=== PATIENT | female | born 1955 | race Caucasian/White ===

== ENCOUNTER 2024-08-21 00:30 | Emergency (ER) | payer OTHER, SELFPAY ==
[2024-08-21] VITALS (8 sets, daily range): BP systolic 120–176; BP diastolic 55–98; BMI 35.7
[2024-08-21 01:10] LABS: Urine Albumin 1+ (Neg - Trace); Urine Bilirubin Negative (Negative); Urine Character Cloudy (Clear); Urine Color Amber; Urine Glucose 1+ (Negative); Urine Ketone Trace (Negative); Urine Leukocyte Trace (Negative); Urine Nitrite Negative (Negative); Urine Occult Blood 4+ (Negative); Urine Specific Gravity 1.025 (<1.030); Urine Urobilinogen Negative (Neg - 1+)
[2024-08-21 01:11] LABS: % Basophils 0.4 % (0-2); % Eosinophils 0.1 % (0-6); % Immature Granulocytes 0.4 % (0-0.5); % Lymphocytes 6.4 % (20.5-51.1); % Monocytes 4.2 % (1.7-9.3); % Neutrophils 88.5 % (42.2-75.2); Absolute Basophils 0.1 10^3/uL (0-0.2); Absolute Immature Granulocytes 0.1 10^3/uL (0-0.05); Absolute Lymphocytes 0.7 10^3/uL (1.2-3.4); Absolute Monocytes 0.5 10^3/uL (0.1-0.6); Absolute Neutrophils 9.9 10^3/uL (1.4-6.5); Hematocrit 43.2 % (37.0-47.0); Hemoglobin 14.9 g/dL (12.0-16.0); Mean Corp Hgb Conc. 34.5 g/dL (33.0-37.0); Mean Corpuscular Hgb 32.8 pg (27.0-31.0); Mean Corpuscular Volume 95.2 fL (81.0-99.0); Mean Platelet Volume 10.2 fL (7.4-10.4); Nucleated Red Blood Cells % 0 %; Platelet Count 208 10^3/uL (130-400); Red Blood Cell Count 4.54 10^6/uL (4.20-5.40); Red Cell Dist. Width 12.4 % (11.5-14.5); White Blood Cell Count 11.2 10^3/uL (4.8-10.8)
[2024-08-21 01:17] LABS: Urine Amorphous Seen; Urine Bacteria Many (Negative); Urine Red Blood Cell >100 /HPF (0-2); Urine Squamous Cell >30 /LPF (Few)
[2024-08-21 01:18] LABS: ALT (SGPT) 23 U/L (0-35); AST (SGOT) 28 U/L (14-36); Albumin 4.6 g/dl (3.5-5.0); Alkaline Phosphatase 131 U/L (38-126); Blood Urea Nitrogen 17 mg/dl (7-17); Calcium 10.5 mg/dl (8.4-10.2); Carbon Dioxide 19 mmol/L (22-30); Chloride 106 mmol/L (98-107); Glucose 180 mg/dl (70-99); Lipase 70 U/L (23-300); Potassium 4.2 mmol/L (3.5-5.1); Sodium 134 mmol/L (135-145); Total Bilirubin 0.5 mg/dl (0.2-1.3); Total Protein 7.4 g/dl (6.3-8.2); eGFR > 60.00
[2024-08-21 01:18] LABS: Urine Calcium Oxalate Crystals Seen
--- NOTE | 2024-08-21 07:42 | ED.GENMED ---
History of Present Illness
General
Chief Complaint: Abdominal Pain
Source: patient
Exam Limitations: none
Time Seen by Provider: 08/21/24 07:06
Nursing documentation reviewed up to this point in time: agreed with
History of Present Illness
History of Present Illness:
69 y/o F
no chronic meds
here with abd pain that sstarted after eating dinner around 7 pm and seemed to increase and move around, was initially upper abd and then settled to lower abd with radiation to her back
she was very uncomfortable
tried to stay home but couldn't find comfortable position
she had 3 total episodes of vomiting and some nausea and gas
but no diarrhea, fever, cp, sob
she noticed gross hematuria with pink urine, no clots
pt actually has upcoming appt with urology after having 2 separate episodes of painless hematuria (one in june one in july) and had eval with UA which was neg beucase it was transient
never had kidney stone before
Past History
Past History
ED Past Medical History: None
ED Past Surgical History: Gynecological
Social History
Tobacco: Non-smoker
Alcohol: None
Drug: None
Review of Systems
Review of Systems
Allergies reviewed?: Yes
All Other Systems: Not applicable
Phy Exam
Physical Exam
Physical Exam:
GENERAL: Alert , in no apparent distress
EYE: pupils equal and reactive
NECK: Supple
ENT: o/p clr, mmm.
CARDIAC: Regular rate and rhythm .
LUNGS: Clear breath sounds bilaterally, no acute respiratory distress, no wheezes/rales/rhonchi
ABDOMEN: Soft, without focal tenderness, no r/g, no cvat, normal bowel sounds
NEUROLOGICAL: Alert and oriented, no focal neuro deficits
SKIN: Warm and dry, skin intact.
PSYCH: Normal and appropriate interaction.
Course
Orders/Labs/Results
Orders:
Orders
08/21/24 00:31
EKG [Electrocardiogram (*1)] Urgent
Reason for Study: Abdominal Pain
08/21/24 00:32
EKG- Treatment ONCE
08/21/24 00:51
Urinalysis Reflex To Culture Urgent
Date Specimen was Collected: 08/21/24
Time Specimen was Collected: 00:31
Urine Microscopic Reflex Cult Urgent
Urine Culture Urgent
PARVIN Source: U
Specimen Description:
Date Specimen was Collected: 08/21/24
Time Specimen was Collected: 00:31
08/21/24 00:56
Complete Blood Count/With Diff Urgent
Comprehensive Metabolic Panel Urgent
Lipase Urgent
08/21/24 07:38
CT Abd/pel Without Iv Or Oral Urgent
Comment:
Reason For Exam: sever abd pain/back pain, hematuria
08/21/24 09:11
Tamsulosin [Flomax] 0.4 mg PO NOW STA
08/21/24 10:34
Urinalysis Reflex To Culture Urgent
Date Specimen was Collected: 08/21/24
Time Specimen was Collected: 10:10
Urine Microscopic Reflex Cult Urgent
Abnormal Lab Results
08/21/24 08/21/24 08/21/24
00:51 00:56 10:34
WBC 11.2 H 10^3/uL
(4.8-10.8)
MCH 32.8 H pg
(27.0-31.0)
Abs Immat Gran (auto) 0.1 H 10^3/uL
(0-0.05)
Absolute Neuts (auto) 9.9 H 10^3/uL
(1.4-6.5)
Absolute Lymphs (auto) 0.7 L 10^3/uL
(1.2-3.4)
Neutrophils % 88.5 H %
(42.2-75.2)
Lymphocytes % 6.4 L %
(20.5-51.1)
Sodium 134 L mmol/L
(135-145)
Carbon Dioxide 19 L mmol/L
(22-30)
Glucose 180 H mg/dl
(70-99)
Calcium 10.5 H mg/dl
(8.4-10.2)
Alkaline Phosphatase 131 H U/L
(38-126)
Urine Ketones Trace A
(Negative)
Ur Occult Blood Reflex 4+ A 4+ A
(Negative) (Negative)
Leukocyte Esterase Rfl Trace A Trace A
(Negative) (Negative)
Urine RBC >100 A /HPF >100 A /HPF
(0-2) (0-2)
Urine Bacteria (Reflex) Many A
(Negative)
Urine Glucose 1+ A
(Negative)
Urine Albumin (Reflex) 1+ A
(Neg - Trace)
08/21/24 00:56
08/21/24 00:56
Vital Signs
Initial and Last Documented VS:
Initial Vital Signs
Temp Pulse Resp BP Pulse Ox
36.6 C 105 20 176/98 96
08/21/24 00:32 08/21/24 00:32 08/21/24 00:32 08/21/24 00:32 08/21/24 00:32
Last Documented Vital Signs
Temp Pulse Resp BP Pulse Ox
36.6 C 105 20 125/65 96
08/21/24 00:32 08/21/24 00:32 08/21/24 00:32 08/21/24 11:00 08/21/24 11:45
MDM/Problems Addressed
Differential Diagnosis Includes:
Ureterolithiasis, gas pain, gastroenteritis
MDM/Problems Addressed:
69-year-old female healthy presents for significant abdominal discomfort that started last evening a few hours after eating associated with some nausea and vomiting x 3, patient felt like she could not get comfortable. The pain radiated to her
back. She was very uncomfortable in the ER waiting area where she waited unfortunately she Samson time but by the time I saw her this morning she is no longer having any symptoms. She has not had a fever or chills. She had 1 episode of dysuria
earlier in the waiting area but otherwise has not had any urinary symptoms. Patient apparently has had painless hematuria on 2 other occasions and visited her family doctor and was told to follow-up with urologist but has not had an appointment
yet. She has never had a kidney stone before. On exam the patient is comfortable, afebrile, normotensive, nontender abdomen and well-appearing. Her white 11.2, creatinine is normal, blood glucose is 180 she does report that she does watch her
blood sugar not because she is diabetic but just for surveillance purposes and it is usually around 120. Her UA appears contaminated with greater than 30 squamous cells but also a large amount of red blood cells and trace leuk esterase but negative
nitrite. CT shows a distal left 8 mm ureteral calculus with mild to moderate hydro-. Since she does not belong to a urologist I did reach out to
pt's pain has been controlled
she had repeat UA which did not show signs of infection but more just c/w hematuria
he felt that she could have trial of passage, flomax, pain meds and f/u outpatient
pt reassessed prior to discharge; paiin sill controlled
d/c home
*Critical Care Note
Total Time (30-74mins, 75-104mins- exclusive of procedures): Not Applicable
ED Attending Note
-
Portions of this chart may have been created with voice recognition software.� Occasional wrong word or��sound alike� substitutions may have occurred due to the inherent limitations of voice recognition software.
Discharge Plan
Departure
Patient Disposition: Home (Routine Discharge)
Date of Disposition: 08/21/24
Time of Disposition: 11:22
Patient with high blood pressure during this ER visit?: No
Condition: Fair
Covid-19: Not Applicable
Discharge Problem:
Kidney stone
Instructions: Kidney Stones (DC)
Prescriptions:
New
ondansetron 4 mg tablet,disintegrating
4 mg PO Q8H PRN (Reason: nausea and vomiting) 2 Days Qty: 5 0RF
tamsulosin [Flomax] 0.4 mg capsule
0.4 mg PO DAILY Qty: 14 0RF
oxycodone 5 mg tablet
5 mg PO Q8H PRN (Reason: Pain) Qty: 7 0RF
Referrals:
Fabian Conde MD [Active] - Follow up in 1 week (urology)
Activity Restrictions/Additional Instructions:
You have a kidney stone distally in your left ureter that is almost passed into your bladder. Take Flomax once a day until you pass the stone. Each time you urinate pee through the strainer to see if you can collect the stone. Take Tylenol 3
times a day for pain as needed. If your pain is more significant you could use oxycodone 5 mg every 6-8 hours. This is a narcotic, if you using it please do not drink alcohol or drive a car. You should also take a stool softener when you are on
this medication. It is important that you follow-up with a urologist but you may not get an appointment for a week or 2. You may keep your urologist appointment that you already have or you can try to be seen sooner with our group. You can try
calling on Friday. I spoke with Dr. Conde who was okay with you going home with a trial of passage. Should your pain become more significant you should return to the ER and likely you may need a procedure.
Also return for fever, burning with urination, inability to urinate, vomiting repeatedly or any concerns
Interventions
Interventions:
*Risk Screen - Suicide Last Done: 08/21/24 00:32
*General Assessment Last Done: 08/21/24 00:32
*Neglect/Abuse Screening Last Done: 08/21/24 00:32
ED- Fall Risk Assessment Last Done: 08/21/24 06:07
*ED COVID-19 Vaccine History Last Done: 08/21/24 06:06
YF-Swwhoq-Okjqchwrlh Assessment Last Done: 08/21/24 06:06
Discharge Date and Time
Print Language: CZECH
[2024-08-21 10:44] LABS: Urine Albumin Trace (Neg - Trace); Urine Bilirubin Negative (Negative); Urine Character Slightly Cloudy (Clear); Urine Color Yellow; Urine Glucose Negative (Negative); Urine Ketone Negative (Negative); Urine Leukocyte Trace (Negative); Urine Nitrite Negative (Negative); Urine Occult Blood 4+ (Negative); Urine Specific Gravity 1.015 (<1.030); Urine Urobilinogen Negative (Neg - 1+); Urine pH 6.5 (5.0-9.0)
[2024-08-21] MEDS: FLOMAX 0.4 MG PO (10:50)
[2024-08-21 11:20] LABS: Urine Red Blood Cell >100 /HPF (0-2); Urine White Cell 0-2 /HPF (0-5)
== END 2024-08-21 11:50 | disposition home or self-care (01) ==
LOC: EMR 00:30
PROVIDERS: Physician Assistant; Student in an Organized Health Care Education/Training Program; EMERGENCY PHYSICIAN Emergency Medicine
DX: N13.2 Hydronephrosis with renal and ureteral calculous obstruction (principal)
CPT/HCPCS: 99284; 74176; 80053; 81003; 81015; 83690; 85025; 87086; 93005

== ENCOUNTER 2024-08-24 16:52 | Emergency (ER) | payer OTHER, SELFPAY ==
[2024-08-24 16:55] VITALS: BP 136/86
[2024-08-24 17:19] LABS: % Basophils 0.4 % (0-2); % Eosinophils 0.2 % (0-6); % Immature Granulocytes 0.4 % (0-0.5); % Lymphocytes 16.1 % (20.5-51.1); % Monocytes 8.6 % (1.7-9.3); % Neutrophils 74.3 % (42.2-75.2); Absolute Lymphocytes 1.8 10^3/uL (1.2-3.4); Absolute Neutrophils 8.4 10^3/uL (1.4-6.5); Hematocrit 41.6 % (37.0-47.0); Hemoglobin 14.8 g/dL (12.0-16.0); Mean Corp Hgb Conc. 35.6 g/dL (33.0-37.0); Mean Corpuscular Hgb 33.3 pg (27.0-31.0); Mean Corpuscular Volume 93.5 fL (81.0-99.0); Nucleated Red Blood Cells % 0 %; Platelet Count 226 10^3/uL (130-400); Red Blood Cell Count 4.45 10^6/uL (4.20-5.40); White Blood Cell Count 11.2 10^3/uL (4.8-10.8)
[2024-08-24 17:33] LABS: ALT (SGPT) 21 U/L (0-35); AST (SGOT) 25 U/L (14-36); Albumin 4.7 g/dl (3.5-5.0); Alkaline Phosphatase 115 U/L (38-126); Blood Urea Nitrogen 13 mg/dl (7-17); Calcium 10.8 mg/dl (8.4-10.2); Carbon Dioxide 17 mmol/L (22-30); Chloride 102 mmol/L (98-107); Glucose 138 mg/dl (70-99); Potassium 4.1 mmol/L (3.5-5.1); Sodium 133 mmol/L (135-145); Total Bilirubin 1.2 mg/dl (0.2-1.3); Total Protein 7.5 g/dl (6.3-8.2); eGFR > 60.00
== END 2024-08-25 01:18 ==
LOC: EMR 16:52
PROVIDERS: EMERGENCY PHYSICIAN Emergency Medicine
DX: R10.9 Unspecified abdominal pain (principal); Z53.21 Procedure and treatment not carried out due to patient leaving prior to being seen by health care provider
CPT/HCPCS: 99283; 80053; 85025

== ENCOUNTER → 2024-08-31 14:47 | Outpatient (REF) | payer OTHER, SELFPAY | LOC: HWRAD 14:47 | PROVIDERS: ATTENDING PHYSICIAN Surgery; FAMILY PHYSICIAN Internal Medicine | DX: N13.2 Hydronephrosis with renal and ureteral calculous obstruction (principal) | CPT/HCPCS: 74018 ==